=== PATIENT | male | born 1995 | race Caucasian/White ===

== ENCOUNTER 2018-09-23 01:05 | Emergency (ER) | payer OTHER ==
[2018-09-23] MEDS ORDERED: Ibuprofen 800 MG TAB ONE (01:25)
--- NOTE | 2018-09-23 08:25 | RAD ---
LEFT ANKLE THREE VIEWS: HISTORY: Twisting injury. Pain. COMPARISON: None. FINDINGS: Joint spaces are preserved. Ankle mortise is intact. No fracture. IMPRESSION: No fracture. POS: [facility]
== END 2018-09-23 02:05 | disposition home or self-care (01) ==
LOC: SCSER 01:05
DX: S93.402A Sprain of unspecified ligament of left ankle, initial encounter (principal); F17.210 Nicotine dependence, cigarettes, uncomplicated; X50.9XXA Other and unspecified overexertion or strenuous movements or postures, initial encounter

== ENCOUNTER 2024-05-16 08:00 | Outpatient (CLI) | payer BC | END 2024-05-16 08:01 | disposition home or self-care (01) | LOC: SCSMRI 08:00 | PROVIDERS: ATTEND Internal Medicine Gastroenterology | DX: R89.0 Abnormal level of enzymes in specimens from other organs, systems and tissues (principal) | CPT/HCPCS: 74183 ==